=== PATIENT | female | born 1945 | race Caucasian/White ===

== ENCOUNTER 2019-06-11 20:38 | Emergency (ER) | payer OTHER ==
[~2019-06-11] VITALS: Ht 157.5 cm; Wt 60.3 kg
[2019-06-11] MEDS ORDERED: METFORMIN HCL500 MG (20:51)
[2019-06-11] MEDS ORDERED: XANAX2 MG (20:51)
== END 2019-06-12 03:05 | disposition home or self-care (01) ==
LOC: ER 20:38
DX: F41.8 Other specified anxiety disorders (principal); E86.0 Dehydration; R11.11 Vomiting without nausea